=== PATIENT | male | born 1980 | race Caucasian/White ===

== ENCOUNTER 2020-05-01 23:01 | Inpatient (IN) | payer OTHER ==
[2020-05-01] MEDS ORDERED: Electrolyte Replacement Protocol 1 EACH FS PRN (23:03)
[2020-05-01] MEDS ORDERED: Vecuronium 10 MG VIAL IVP PRN (23:03)
[2020-05-01] MEDS ORDERED: Acetaminophen 500 MG TAB PO PRN (23:06)
[2020-05-01] MEDS ORDERED: niCARdipine 40MG In NaCl 40 MG/200 ML BAG IVPB SCH (23:15)
[2020-05-01] MEDS ORDERED: Ventilator Sedation Protocol 1 EACH FS SCH (23:15)
[2020-05-02] MEDS ORDERED: Sodium Chloride 0.9% 1,000 ML IV SCH (02:00)
[2020-05-02] MEDS ORDERED: Fentanyl CADD 100 ML IV SCH (02:00)
[2020-05-02] MEDS ORDERED: Fentanyl BOLUS 250 ML IVPB PRN (02:00)
[2020-05-02] MEDS ORDERED: Morphine 2 MG/ML VIAL SLOW IVP PRN (02:00)
[2020-05-02] MEDS ORDERED: DISCONTINUE PREVIOUS NARCOTIC PAIN MEDICATIONS AND BENZODIAZEPINES FS SCH (02:00)
[2020-05-02] MEDS ORDERED: Propofol BOLUS 1,000 MG/100 ML VIAL IV PRN (02:00)
[2020-05-02] MEDS ORDERED: Sterile Water 10 ML VIAL FS PRN (02:02)
[2020-05-02 02:19] LABS: Actual Bicarbonate (HCO3a) 14.4 mEq/L (22-28); Base Excess (BEa) -9.6 mEq/L (-2.0 to +3.0); CO2 Tension 28.7 mmHg (35.0-45.0); Calcium, Ionized (arterial) 1.05 mmol/L (1.12-1.30); Carboxyhemoglobin (COHb) 0.3 gm% (0.0-3.0); O2 Tension (PaO2), arterial 168.5 mmHg (80.0-100.0); Potassium - ABG Lab 3.69 mmol/L (3.70-5.30); pH, Arterial 7.32 (7.35-7.45)
[2020-05-02 02:21] LABS: Puncture Site RRA
[2020-05-02 02:22] LABS: ALV-art Gradient 80.825 mmHg (0-20)
--- NOTE | 2020-05-02 02:47 | HP ---
REASON FOR ADMISSION: Anoxic brain injury status post hanging. HISTORY OF THE PRESENT ILLNESS: Mr. Matute is a 39-year-old male who was found down at home by his sister and father. He had tied a belt around his neck and hung himself from a door knob. Apparently, he had been inebriated. The patient subsequently underwent bystander CPR. He was down at least 15 minutes before paramedics arrived. I am told paramedics got a pulse back, but it was lost in the ambulance and CPR was resumed. I believe he also had one more arrest while in the ER. When I saw him in the emergency room at the [facility], the patient was on mechanical ventilation. He was having some spontaneous respirations and some myoclonic jerking activity, but otherwise had a flat neurologic exam. PAST MEDICAL HISTORY: Remarkable for alcoholism. PAST SURGICAL HISTORY: None. ALLERGIES: NONE. SOCIAL HISTORY: Works for [employer]. He had been attending [employer]. He lives at home with his parents. He has a history of heavy alcohol abuse and had been abstaining for the last several months, but resumed drinking today. REVIEW OF SYSTEMS: Unobtainable. MEDICATIONS: Prior to admission, none. PHYSICAL EXAMINATION: VITAL SIGNS: Heart rate 123, blood pressure 147/109, O2 saturation 97%, respiratory rate 25. GENERAL: The patient is a heavy-set male who is intubated and on mechanical ventilation. HEENT: Right pupil is 5 mm, left pupil 4 mm, nonreactive to light. Sclerae anicteric. Oropharynx is intubated. NECK: C-collar in place. LUNGS: Clear to auscultation bilaterally. CARDIOVASCULAR: S1, S2. Slightly tachycardic. ABDOMEN: Soft and nontender to palpation. EXTREMITIES: No clubbing, cyanosis or edema. NEUROLOGIC: I cannot get him to withdraw with his feet. There may have been minimal withdrawal with his right arm. Left arm was areflexic. He had no gag. He did have some myoclonic type thrusting movements of his chest. LABORATORY DATA: White count 7.4, hematocrit 49.6, and platelet count 210. Initial ABG prior to intubation, pH 7.05, pCO2 of 65, pO2 of 582. Sodium 144, potassium 3.6, chloride 100, CO2 of 19, BUN 13, creatinine 1.9, glucose 211, lactate 8.2, AST 118, ALT 72, albumin 3.9. Urinalysis showed some proteinuria. His COVID serology from 05/01 was negative. Influenza screen was also negative. IMAGING: Chest x-ray showed clear lung mccartney. Good ET tube position. No effusion. No infiltrate. Brain CT shows loss of prince-white matter differentiation, cerebral edema. ASSESSMENT: 1. Severe anoxic brain injury status post hanging. 2. Acute respiratory failure requiring mechanical ventilation. 3. Alcoholism. PLAN: I doubt this situation is reversible from brain injury standpoint. The initial CT looks very bad. We are not completely sure how long he was down before he was discovered, but it was at least 15 minutes. My initial plan was to do hypothermia, if it can be tolerated. In 24 hours, we will reassess his brain function. If his neurologic exam was flat at that point, then proceed with cerebral brain flow imaging. In the meantime, supportive care. He will be given IV fluids, thiamine. DVT prophylaxis with enoxaparin and GI prophylaxis with Pepcid. Job ID: [id number]
[2020-05-02] MEDS ORDERED: Fentanyl CADD 100 ML ONE (03:49)
[2020-05-02] MEDS: niCARdipine 50 MG in Sodium Chloride 0.9% 250 ML 230 ML IV SCH (04:05)
[2020-05-02 04:11] LABS: Lactic Acid 9.9 mmol/L (0.5-2.2)
[2020-05-02 04:14] LABS: Anion Gap 30 mmol/L (10-20); BUN (Urea Nitrogen) 22 mg/dL (8.9-20.6); Calc. Creatinine Clearance 0 mL/min (70-130); Calcium 8.5 mg/dL (7.8-10.44); Carbon Dioxide 15 mmol/L (22-29); Chloride 105 mmol/L (98-107); Glucose 126 mg/dL (70-105); Potassium 3.7 mmol/L (3.5-5.1); Sodium 146 mmol/L (136-145)
[2020-05-02 04:15] LABS: ALT (SGPT) 271 U/L (8-55); AST (SGOT) 362 U/L (5-34); Albumin 4.7 g/dL (3.5-5.0); Alkaline Phosphatase 65 U/L (40-110); Bilirubin, Direct 0.2 mg/dL (0.1-0.3); Bilirubin, Total 0.5 mg/dL (0.2-1.2); Protein, Total 7.9 g/dL (6.0-8.3)
[2020-05-02] MEDS: Lorazepam 2 MG/ML VIAL SLOW IVP PRN ×3 (04:26→19:51)
[2020-05-02] MEDS: Propofol 1,000 MG/100 ML VIAL IV PRN ×2 (04:26→19:51)
[2020-05-02 04:34] LABS: Band 13 % (5-11); Hemoglobin 19.2 g/dL (14.0-18.0); Lymphocytes 6 % (21-51); MDiff Complete? YES; Mean Corpuscular HGB CONC 35.6 g/dL (32.0-36.0); Mean Corpuscular Volume 95.5 fL (78.0-98.0); Mean Platelet Volume 7.1 fL (7.4-10.4); Monocytes 5 % (0-10); Neutrophil 75 % (42-75); Platelet Count 252 thou/uL (130-400); RBC Distribution Width 11.7 % (11.5-14.5); Reactive Lymphocytes 1 % (0-10); Red Blood Cell (RBC) Count 5.66 mill/uL (4.70-6.10); White Blood Cell (WBC) Count 22.8 thou/uL (4.8-10.8)
[2020-05-02 04:38] LABS: Amphetamine Not Detected (NotDetected); Barbiturates Screen Not Detected (NotDetected); Benzodiazepine Screen Not Detected (NotDetected); Cocaine Metabolite Screen Not Detected (NotDetected); Medtox Control Line Valid? VALID (VALID); Medtox Reader # READER 4; Methadone Not Detected (NotDetected); Methamphetamine Not Detected (NotDetected); Opiate Screen Not Detected (NotDetected); Oxycodone Screen Not Detected (NotDetected); Phencyclidine (PCP) Not Detected (NotDetected); THC/Cannabinoid Screen Not Detected (NotDetected); Tricyclic Screen Not Detected (NotDetected)
[2020-05-02 06:28] VITALS: BMI 28.0
[2020-05-02] MEDS ORDERED: FLU VACC QS2020-21(6MOS UP)/PF 60 MCG/0.5 ML SYRINGE IM ONE (07:30)
--- NOTE | 2020-05-02 08:06 | PRG ---
DATE OF SERVICE: 05/02/2020 A 35 minutes of critical care time. SUBJECTIVE: The patient is intubated on mechanical ventilation. There have been no acute changes since I last examined him. OBJECTIVE: VITAL SIGNS: His T-max was 104.9, it is currently 99.0. Pulse 126, blood pressure 101/71, and O2 saturation 100%. NEUROLOGIC: His exam is completely flat except for spontaneous respirations. He has no pupillary reflex. No oculocephalic reflex. No withdrawal to pain. No gag reflex. HEENT: Otherwise unremarkable. NECK: No JVD. LUNGS: Clear. CARDIAC: S1 and S2. Regular. ABDOMEN: Soft. EXTREMITIES: No edema. LABORATORY DATA: White blood cell count 22.8, hematocrit 54, and platelet count 252. A pH of 7.32, pCO2 of 28, and pO2 of 168 on SIMV of 14, tidal of 500, PEEP 5, pressure support 10, and FiO2 of 40%. Sodium 146, potassium 3.7, chloride 105, CO2 of 15, BUN 22, creatinine 1.8, glucose 166, AST 362, and ALT 271. Chest x-ray is clear. ASSESSMENT: 1. Status post hanging. 2. Anoxic brain injury - severe - near brain . PLAN: 1. Because of developing hypernatremia and metabolic acidosis, I will go ahead and switch him over to D5W with bicarbonate. 2. Continue supportive care with mechanical ventilation. 3. I spoke with family. Since the patient is not technically brain , cerebral perfusion blood studies not indicated at the current moment. I do expect him to progress towards herniation. Job ID: [id number]
--- NOTE | 2020-05-02 08:18 | RAD ---
XR Chest 1 View Portable History: Intubated patient Comparison: Radiograph prior day Findings: Intra-articular tube tip at the clavicular level. Enteric tube tip at the gastric body. Extensive pneumomediastinum. Impression: Extensive pneumomediastinum. Enteric tube tip gastric body and endotracheal tube tip just below the clavicular level.
[2020-05-02] MEDS: Sodium Bicarbonate 70 MEQ in Dextrose 5% in Water 1,000 ML IV SCH ×2 (09:08→16:54)
[2020-05-02] MEDS: Enoxaparin Sodium 40 MG/0.4 ML SYRINGE SC SCH (09:10)
[2020-05-02] MEDS: Famotidine/PF 20 mg/2ml Vial SLOW IVP SCH ×2 (09:10→20:15)
[2020-05-03] MEDS: Propofol 1,000 MG/100 ML VIAL IV PRN ×5 (01:04→23:30)
[2020-05-03] MEDS: Sodium Bicarbonate 70 MEQ in Dextrose 5% in Water 1,000 ML IV SCH (02:30)
[2020-05-03] MEDS: Lorazepam 2 MG/ML VIAL SLOW IVP PRN ×2 (02:30→08:04)
[2020-05-03 03:45] LABS: #Lymphocytes 0.9 thou/uL (1.20-3.40); #Neutrophils 13.4 thou/uL (1.40-6.50); %Eosinophils 0.2 % (0.0-10.0); %Lymphocytes 6.1 % (21.0-51.0); %Monocytes 6.8 % (0.0-10.0); Hemoglobin 17.9 g/dL (14.0-18.0); Mean Corpuscular Hemoglobin 32.3 pg (27.0-31.0); Mean Corpuscular Volume 94.7 fL (78.0-98.0); Mean Platelet Volume 7.3 fL (7.4-10.4); Platelet Count 169 thou/uL (130-400); RBC Distribution Width 11.7 % (11.5-14.5); Red Blood Cell (RBC) Count 5.55 mill/uL (4.70-6.10); White Blood Cell (WBC) Count 15.4 thou/uL (4.8-10.8)
[2020-05-03 04:02] LABS: Anion Gap 13 mmol/L (10-20); BUN (Urea Nitrogen) 23 mg/dL (8.9-20.6); Calc. Creatinine Clearance 103 mL/min (70-130); Calcium 8.4 mg/dL (7.8-10.44); Carbon Dioxide 30 mmol/L (22-29); Chloride 103 mmol/L (98-107); Glucose 184 mg/dL (70-105); Potassium 3.1 mmol/L (3.5-5.1); Sodium 143 mmol/L (136-145)
[2020-05-03] MEDS ORDERED: Potassium Chloride 40 MEQ in Premix Bag 1 BAG IVPB SCH (04:15)
[2020-05-03] MEDS: niCARdipine 50 MG in Sodium Chloride 0.9% 250 ML 230 ML IV SCH ×2 (04:59→10:38)
--- NOTE | 2020-05-03 05:58 | OP ---
DATE OF PROCEDURE: 05/02/2020 PROCEDURE PERFORMED: Right arterial femoral line placement. PREOPERATIVE DIAGNOSIS: Status post anoxic brain injury, pretransplant evaluation. POSTOPERATIVE DIAGNOSIS: Status post anoxic brain injury, pretransplant evaluation. ANESTHESIA: None. DESCRIPTION OF PROCEDURE: A right femoral arterial line was placed under sterile conditions in the right femoral area using modified Seldinger technique. Chlorhexidine was used as prep. The patient tolerated the procedure well. Job ID: [id number]
[2020-05-03 07:56] LABS: Actual Bicarbonate (HCO3a) 29.3 mEq/L (22-28); CO2 Tension 41.9 mmHg (35.0-45.0); Calcium, Ionized (arterial) 1.08 mmol/L (1.12-1.30); Carboxyhemoglobin (COHb) 0.3 gm% (0.0-3.0); Hemoglobin (Hb) 18.3 g/dL (14.0-18.0); O2 Tension (PaO2), arterial 157.6 mmHg (80.0-100.0); Potassium - ABG Lab 3.68 mmol/L (3.70-5.30); pH, Arterial 7.46 (7.35-7.45)
[2020-05-03] MEDS: Enoxaparin Sodium 40 MG/0.4 ML SYRINGE SC SCH (08:04)
[2020-05-03] MEDS: Famotidine/PF 20 mg/2ml Vial SLOW IVP SCH ×2 (08:04→20:38)
--- NOTE | 2020-05-03 09:12 | RAD ---
CHEST 1 VIEW: Date: 05/03/2020 HISTORY: Pneumonia. COMPARISON: Radiograph prior day. FINDINGS: Pneumomediastinum is partially resolving. External artifact projects to the left hemithorax. Endotracheal tube tip at the clavicular level. Enteric tube tip at gastric body. No significant pneumothorax is appreciated. IMPRESSION: Partially resolving pneumomediastinum. POS: [facility]
--- NOTE | 2020-05-03 09:16 | PRG ---
DATE OF SERVICE: 05/03/2020 35 minutes of critical care time. SUBJECTIVE: The patient is doing poorly. He has had increased urine output. His only preserved reflex is spontaneous respirations and even that has slowed down. OBJECTIVE: VITAL SIGNS: His temperature is 100.5, pulse 81, blood pressure 124/78. 24-hour intake 1693, output 1990 over the last hour, though he has had about 300 mL of urine output and his urine has become very clear. HEENT: Otherwise unremarkable. NECK: No JVD. LUNGS: Clear. CARDIAC: S1, S2. Regular. ABDOMEN: Soft. EXTREMITIES: No edema. LABORATORY DATA: Sodium 143, potassium 3.1, chloride 103, CO2 of 30, BUN 23, creatinine 1.1, glucose 184. AST 362, ALT 271. White blood cell count 15.4, hematocrit 52.6, and platelet count 169. X-ray shows no significant change. ASSESSMENT: 1. Severe anoxic brain injury. 2. Acute respiratory failure, requiring mechanical ventilation. 3. Near brain . PLAN: 1. Change to normal saline. Try to match urine output. 2. We would anticipate herniation and brain coming soon. 3. [place] T4 protocol. 4. May need to have DDAVP. 5. Cerebral brain flow study at some point after neurologic reflexes are absent. Job ID: [id number]
[2020-05-03] MEDS ORDERED: Dextrose 50% Abboject 50 ML SYRINGE SLOW IVP SCH (09:45)
[2020-05-03] MEDS ORDERED: Levothyroxine 100 MCG SDV SLOW IVP SCH (09:45)
[2020-05-03] MEDS ORDERED: Insulin Regular 300 UNITS/3 ML VIAL IVP SCH (09:45)
[2020-05-03] MEDS ORDERED: methylPREDNISolone Sod Succ 2 gm/30 ml Vial IVP SCH (09:45)
[2020-05-03] MEDS ORDERED: Levothyroxine Sodium 400 MCG in Sodium Chloride 0.9% 100 ML IVPB SCH (09:45)
[2020-05-03] MEDS ORDERED: methylPREDNISolone Sod Succ 1,000 MG in Sodium Chloride 0.9% 100 ML IVPB SCH ×2 (10:00→10:30)
[2020-05-03] MEDS: Sodium Chloride 0.9% 1,000 ML IV SCH ×3 (10:00→19:44)
[2020-05-03 13:05] LABS: ALV-art Gradient 75.225 mmHg (0-20); Puncture Site Arterial Line
[2020-05-03] MEDS ORDERED: Scopolamine 1.5 mg/72 hour Patch TD SCH (13:45)
[2020-05-04] MEDS: Sodium Chloride 0.9% 1,000 ML IV SCH ×2 (03:48→11:08)
[2020-05-04 05:22] LABS: Anion Gap 14 mmol/L (10-20); BUN (Urea Nitrogen) 11 mg/dL (8.9-20.6); Calc. Creatinine Clearance 120 mL/min (70-130); Calcium 9.2 mg/dL (7.8-10.44); Carbon Dioxide 30 mmol/L (22-29); Chloride 115 mmol/L (98-107); Glucose 134 mg/dL (70-105); Sodium 155 mmol/L (136-145)
[2020-05-04 05:52] LABS: Band 36 % (5-11); Lymphocytes 6 % (21-51); MDiff Complete? YES; Mean Corpuscular HGB CONC 33.2 g/dL (32.0-36.0); Mean Corpuscular Hemoglobin 32.5 pg (27.0-31.0); Mean Corpuscular Volume 97.9 fL (78.0-98.0); Mean Platelet Volume 7.5 fL (7.4-10.4); Monocytes 4 % (0-10); Neutrophil 54 % (42-75); Platelet Count 149 thou/uL (130-400); RBC Distribution Width 11.8 % (11.5-14.5); Red Blood Cell (RBC) Count 5.22 mill/uL (4.70-6.10); White Blood Cell (WBC) Count 11.2 thou/uL (4.8-10.8)
[2020-05-04] MEDS: niCARdipine 50 MG in Sodium Chloride 0.9% 250 ML 230 ML IV SCH (06:12)
[2020-05-04 07:04] LABS: Actual Bicarbonate (HCO3a) 26.6 mEq/L (22-28); Base Excess (BEa) 1.5 mEq/L (-2.0 to +3.0); CO2 Tension 43.3 mmHg (35.0-45.0); Calcium, Ionized (arterial) 1.24 mmol/L (1.12-1.30); Carboxyhemoglobin (COHb) 0.2 gm% (0.0-3.0); Hemoglobin (Hb) 18.4 g/dL (14.0-18.0); O2 Tension (PaO2), arterial 73.3 mmHg (80.0-100.0); Potassium - ABG Lab 4.14 mmol/L (3.70-5.30); pH, Arterial 7.41 (7.35-7.45)
[2020-05-04 07:05] LABS: ALV-art Gradient 157.775 mmHg (0-20); Puncture Site Arterial Line
--- NOTE | 2020-05-04 07:59 | RAD ---
XR Chest 1 View Portable History: Pneumonia Comparison: Radiograph prior day Findings: Degenerative tip at the clavicular level. No pneumothorax. No confluent airspace consolidat ion. Scattered atelectatic changes. Enteric tube tip below diaphragm although out of field of view. No acute osseous abnormality. Impression: No acute intrathoracic abnormality. Pneumomediastinum continues to resolve.
[2020-05-04] MEDS: Sodium Chloride 0.45% 1,000 ML IV SCH ×4 (08:30→23:05)
--- NOTE | 2020-05-04 08:57 | PRG ---
DATE OF SERVICE: 05/04/2020 This is a 30 minutes critical care time. SUBJECTIVE: The patient remains on mechanical ventilation. He has a few spontaneous respirations. Otherwise, his neurologic exam is flat. OBJECTIVE: VITAL SIGNS: His temperature is 100.8, pulse 86, blood pressure 125/69. He is currently on propofol. Nicardipine has been turned off. 24-hour intake 5367, output 7215. HEENT: Unchanged. NECK: No JVD. LUNGS: Clear. CARDIAC: S1 and S2. Regular. ABDOMEN: Soft. EXTREMITIES: No edema. LABORATORY DATA: Sodium is up to 155, potassium 4, chloride 115, CO2 of 30, BUN 11, creatinine 0.9, glucose 134. White blood cell count 11.2, hematocrit 51.1, and platelet count 149. IMAGING DATA: Chest x-ray shows no change. ASSESSMENT: 1. Anoxic brain injury after hanging with loss of prince white matter differentiation. 2. 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 PLAN: At some point, he will probably herniate. I wanted double his DDAVP dose. I have changed his IV fluids to half-normal saline, still require copious volume to replace what he has lost. We will monitor his sodium level closely. Job ID: [id number]
[2020-05-04] MEDS: Enoxaparin Sodium 40 MG/0.4 ML SYRINGE SC SCH (09:23)
[2020-05-04] MEDS: Famotidine/PF 20 mg/2ml Vial SLOW IVP SCH ×2 (09:24→20:22)
[2020-05-04] MEDS: Propofol 1,000 MG/100 ML VIAL IV PRN ×2 (10:18→16:45)
[2020-05-04] MEDS: Vasopressin 20 UNIT, Admixture Fee 1 EACH in Sodium Chloride 0.9% 50 ML IV SCH ×2 (10:48→17:12)
[2020-05-04 15:19] LABS: Sodium 153 mmol/L (136-145)
[2020-05-04] MEDS: Norepinephrine 8 MG/0.9% NS 250 ML IVPB SCH (23:05)
[2020-05-05 00:42] LABS: Anion Gap 16 mmol/L (10-20); BUN (Urea Nitrogen) 20 mg/dL (8.9-20.6); Calc. Creatinine Clearance 113 mL/min (70-130); Calcium 8.5 mg/dL (7.8-10.44); Carbon Dioxide 24 mmol/L (22-29); Chloride 116 mmol/L (98-107); Glucose 110 mg/dL (70-105); Potassium 3.6 mmol/L (3.5-5.1); Sodium 152 mmol/L (136-145)
[2020-05-05 01:37] VITALS: TEMP 98.8
[2020-05-05] MEDS: Sodium Chloride 0.45% 1,000 ML IV SCH ×3 (04:42→15:00)
[2020-05-05 05:42] LABS: Anion Gap 11 mmol/L (10-20); BUN (Urea Nitrogen) 22 mg/dL (8.9-20.6); Calc. Creatinine Clearance 122 mL/min (70-130); Calcium 8.3 mg/dL (7.8-10.44); Carbon Dioxide 28 mmol/L (22-29); Chloride 115 mmol/L (98-107); Glucose 122 mg/dL (70-105); Potassium 3.8 mmol/L (3.5-5.1); Sodium 150 mmol/L (136-145)
[2020-05-05 06:36] LABS: Band 52 % (5-11); Eosinophils 1 % (0-10); Hemoglobin 13.7 g/dL (14.0-18.0); Lymphocytes 21 % (21-51); MDiff Complete? YES; Mean Corpuscular HGB CONC 31.8 g/dL (32.0-36.0); Mean Corpuscular Hemoglobin 31.9 pg (27.0-31.0); Mean Platelet Volume 7.7 fL (7.4-10.4); Metamyelocyte 9 % (0-0); Monocytes 5 % (0-10); Myelocyte 3 % (0-0); Neutrophil 9 % (42-75); Platelet Count 140 thou/uL (130-400); RBC Distribution Width 11.8 % (11.5-14.5); Toxic Granulation SLIGHT; White Blood Cell (WBC) Count 4.2 thou/uL (4.8-10.8)
[2020-05-05 06:50] LABS: Actual Bicarbonate (HCO3a) 29.4 mEq/L (22-28); Base Excess (BEa) 1.2 mEq/L (-2.0 to +3.0); CO2 Tension 62.5 mmHg (35.0-45.0); Calcium, Ionized (arterial) 1.18 mmol/L (1.12-1.30); Carboxyhemoglobin (COHb) 0.8 gm% (0.0-3.0); Hemoglobin (Hb) 14.4 g/dL (14.0-18.0); O2 Tension (PaO2), arterial 54.2 mmHg (80.0-100.0); Potassium - ABG Lab 3.88 mmol/L (3.70-5.30); pH, Arterial 7.29 (7.35-7.45)
[2020-05-05 06:51] LABS: ALV-art Gradient 295.475 mmHg (0-20); Puncture Site Arterial Line
[2020-05-05] MEDS: Norepinephrine 8 MG/0.9% NS 250 ML IVPB SCH (06:56)
--- NOTE | 2020-05-05 07:30 | RAD ---
PORTABLE CHEST: Date; 05/04/2020 HISTORY: Difficulty ventilated, pneumonia. COMPARISON: Earlier exam done today. FINDINGS: The endotracheal and NG tubes appear to be in satisfactory position. There has been development of fa irly dense interstitial alveolar lung changes, more parahilar and lower lobe in distribution. The rap idity of the development would suggest pulmonary edema. The pneumomediastinum seen on the previous ex am is difficult to appreciate. No pneumothorax. IMPRESSION: Fairly dense interstitial alveolar lung changes, which are more parahilar in lower lobe and more righ t-sided. The rapidity of these changes would suggest pulmonary edema. POS: [facility]
--- NOTE | 2020-05-05 08:01 | RAD ---
Exam: Chest one view HISTORY:Ventilated patient. Difficulty breathing. Ammonia Comparison: 05/04/2020 FINDINGS: Lines and tubes: Redemonstration of endotracheal and nasogastric tube. Cardiac silhouette: Normal Aorta: Unremarkable Pulmonary vessels: Normal Costophrenic angles: Clear LUNGS: Redemonstration of right lower lobe consolidation. Pneumothorax: None Osseous abnormalities: None IMPRESSION: Persistent consolidation of the right lower lobe. Findings may be due to edema or possibl y pneumonia.
[2020-05-05] MEDS: Enoxaparin Sodium 40 MG/0.4 ML SYRINGE SC SCH (08:34)
[2020-05-05] MEDS: Famotidine/PF 20 mg/2ml Vial SLOW IVP SCH (08:34)
--- NOTE | 2020-05-05 08:51 | PRG ---
DATE OF SERVICE: 05/05/2020 35 minutes critical time. SUBJECTIVE: Jos stopped having spontaneous respirations last night. Neurologically, I do not detect any activity and he had no respirations when given the 60-minute apnea spell. OBJECTIVE: VITAL SIGNS: Temperature 98.3, pulse 93, blood pressure 109/65, O2 saturation 96%. 24-hour intake 2805, output 1341. HEENT: Pupils unreactive. No gag. LUNGS: Clear. CARDIAC: S1, S2. Regular. ABDOMEN: Soft. EXTREMITIES: No edema. He is currently on norepinephrine drip at 10 mcg/minute, vasopressin 0.008 units/minute. LABS: Sodium 150, potassium 3.8, chloride 115, CO2 of 28, BUN 22, creatinine 0.9, glucose 122. White blood cell count 4.2, hematocrit 43, and platelet count 140. ASSESSMENT: 1. Status post hanging. 2. Anoxic brain injury. 3. Probable brain . 4. Respiratory failure requiring mechanical ventilation. PLAN: 1. Observe blood flow study today and probably pronouncement afterward if he is found to have absence of blood flow in scan. 2. Continue vasopressor support. 3. Start T4 protocol. Job ID: [id number]
[2020-05-05] MEDS ORDERED: Phenylephrine 40 MG/NS 250 ML 10 MG in Premix Bag 1 BAG IVPB SCH (10:30)
[2020-05-05] MEDS ORDERED: Levothyroxine Sodium 400 MCG in Sodium Chloride 0.9% 100 ML IVPB SCH (11:00)
[2020-05-05] MEDS ORDERED: Phenylephrine 40 MG in Sodium Chloride 0.9% 250 ML 250 ML IVPB SCH (11:30)
--- NOTE | 2020-05-05 11:30 | NM ---
NUCLEAR MEDICINE BRAIN CEREBRAL FLOW STUDY: HISTORY: Evaluate for brain . COMPARISON: CT brain 05/01/2020. FINDINGS: Imaging of the brain was performed after the intravenous administration of 209.6 mCi Technetium 99m C eretec. There is no intracranial blood flow. There is diversion of blood flow to the face. IMPRESSION: No intracerebral blood flow, indicative of absent cerebral perfusion and brain . POS: [facility]
[2020-05-05 15:13] VITALS: BP 98/52
--- NOTE | 2020-05-06 07:17 | DIS ---
DATE OF ADMISSION: 05/02/2020 DATE OF DISCHARGE: 05/05/2020 DATE AND TIME OF : 05/05/2020 at 1600 hours. DIAGNOSES: 1. 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 2. Clinical brain determined at 1600 hours on 05/05/2020. 3. Acute hypoxic respiratory failure secondary to asphyxiation. SUMMARY OF HOSPITALIZATION: The patient initially presented to the [facility] via EMS after being found down at home, hung from his neck by a belt attached to a doorknob. The patient's family had performed bystander CPR prior to presentation, but it was not quite clear how long he had been down, but it was suspected less than 15 minutes. They were able to obtain a pulse in the field, but I believe he arrested once in the ambulance and also again in the Emergency Room. There, he was hemodynamically stabilized with IV fluids and endotracheally intubated. His initial exam showed some posturing reflexes and spontaneous respirations, otherwise his neurologic exam was flat. His initial CT of the head showed loss of prince-white matter differentiation. He was brought to [facility] and kept on mechanical ventilation. He was given IV fluids, vasopressors, etc. On 05/04/2020, he developed profound urine output consistent with central diabetes insipidus. He was given DDAVP, vasopressin, and IV fluid replacement for that. On his initial exam on 05/05/2020, he was noted to have absence of all reflexes including no spontaneous respirations. He subsequently underwent a cerebral blood flow study, which showed no cerebral blood flow consistent with clinical brain . The patient was pronounced at 1600 hours on 05/05/2020. The family was at bedside. The cause of was asphyxiation secondary to hanging. forms examiner had been contacted. Job ID: [id number]
== END 2020-05-05 16:00 | disposition expired | DRG 922 ==
LOC: IMCU/EMU 05-02 01:46
PROVIDERS: ADMIT Internal Medicine Critical Care Medicine; ATTEND Internal Medicine Critical Care Medicine
PROC: 04HY32Z Insertion of Monitoring Device into Lower Artery, Percutaneous Approach (ICD-10-PCS; principal; 2020-05-02)
PROC: 5A1945Z Respiratory Ventilation, 24-96 Consecutive Hours (ICD-10-PCS; 2020-05-02)
PROC: 3E033XZ Introduction of Vasopressor into Peripheral Vein, Percutaneous Approach (ICD-10-PCS; 2020-05-03)
DX: T71.162A Asphyxiation due to hanging, intentional self-harm, initial encounter (principal); J96.01 Acute respiratory failure with hypoxia; G93.1 Anoxic brain damage, not elsewhere classified; E87.0 Hyperosmolality and hypernatremia; E87.2 Acidosis; E23.2 Diabetes insipidus; F10.20 Alcohol dependence, uncomplicated; Y92.009 Unspecified place in unspecified non-institutional (private) residence as the place of occurrence of the external cause
CPT/HCPCS: 36600; 71045; 78610; 80048; 80076; 80306; 82805; 83605; 85025; 93306; 94002; 94003; A9521; J1650; J1815; J2060; J2370; J2597; J2704; J3010; J3411; J3480; J3490; J7050; J7070; S0028

== ENCOUNTER → 2020-05-05 | Day surgery (SDC) | payer OTHER ==
[~2020-05-05] MED LIST: Albumin 25% 100 ML ONE; Albumin 5% 500 ML ONE; DEXTROSE 5% IV SCH; Dextrose 5% in Water 500 ML IV SCH; Furosemide 20 MG/2 ML VIAL ONE; HUMULIN R 100 UNITS in Sodium Chloride 0.9% 100 ML IVPB SCH; Heparin 10,000 UNITS/ 10 ML VIAL ONE; Hydrocortisone Sod Succ/PF 500 mg/4 ml Vial SLOW IVP SCH; Iopamidol 370 76% 100 ML VIAL ONE; Labetalol HCl 100 MG/20 ML VIAL SLOW IVP SCH; Magnesium Sulfate 4 GM in Sodium Chloride 0.9% 250 ML 250 ML IVPB SCH; Mannitol 12.5 GM/50 ML ONE; Micafungin 100 MG in Sodium Chloride 0.9% 100 ML IVPB SCH; Norepinephrine 8 MG/0.9% NS 250 ML IVPB SCH; POTASSIUM ACETATE IV SCH; Phenylephrine 10 MG/NS 250 ML 250 ML IVPB SCH; Potassium Chloride 40 MEQ in Premix Bag 1 BAG IVPB SCH; Potassium Chloride 60 MEQ in Sodium Chloride 0.9% 250 ML 250 ML IVPB SCH; Potassium Phosphate 30 MMOL in Sodium Chloride 0.9% 250 ML 250 ML IVPB SCH; Potassium Phosphate 40 MMOL in Sodium Chloride 0.9% 500 ML IVPB SCH; VANCOMYCIN 1.25 GM/250 ML BAG 1.25 GM in Premix Bag 1 BAG IVPB SCH; Vasopressin 20 UNIT in Sodium Chloride 0.9% 250 ML 250 ML IV SCH; WATER IV SCH; niCARdipine 25 MG in Sodium Chloride 0.9% 250 ML 240 ML IVPB SCH
[2020-05-05 17:10] LABS: Actual Bicarbonate (HCO3a) 26.7 mEq/L (22-28); Base Excess (BEa) 2.5 mEq/L (-2.0 to +3.0); CO2 Tension 39.9 mmHg (35.0-45.0); Calcium, Ionized (arterial) 1.19 mmol/L (1.12-1.30); Carboxyhemoglobin (COHb) 0.5 gm% (0.0-3.0); Hemoglobin (Hb) 13.2 g/dL (14.0-18.0); O2 Tension (PaO2), arterial 121.3 mmHg (80.0-100.0); Potassium - ABG Lab 3.43 mmol/L (3.70-5.30); pH, Arterial 7.44 (7.35-7.45)
[2020-05-05 17:14] LABS: ALV-art Gradient 541.825 mmHg (0-20); Puncture Site Arterial Line
[2020-05-05] MEDS: Piperacillin/Tazobactam 3.375 GM in Sodium Chloride 0.9% 100 ML IVPB SCH (17:57)
[2020-05-05] MEDS: Albumin 25% 25 GM/100 ML BOT IVPB SCH ×2 (18:06→21:13)
[2020-05-05] MEDS: Phytonadione 10 MG/ML AMP SLOW IVP SCH ×2 (18:15→22:25)
[2020-05-05 18:39] LABS: Hemoglobin 12.1 g/dL (14.0-18.0)
[2020-05-05] MEDS: Levothyroxine Sodium 400 MCG in Sodium Chloride 0.9% 100 ML IVPB SCH (19:40)
[2020-05-05 19:51] LABS: INR-International Normal Ratio 1.2; PTT 36.8 sec (22.9-36.1); Prothrombin Time 15.7 sec (12.0-14.7)
[2020-05-05 20:04] LABS: ALT (SGPT) 36 U/L (8-55); AST (SGOT) 22 U/L (5-34); Albumin 2.9 g/dL (3.5-5.0); Alkaline Phosphatase 36 U/L (40-110); Anion Gap 12 mmol/L (10-20); BUN (Urea Nitrogen) 23 mg/dL (8.9-20.6); Calc. Creatinine Clearance 0 mL/min (70-130); Carbon Dioxide 25 mmol/L (22-29); Chloride 116 mmol/L (98-107); Globulin 1.8 g/dL (2.4-3.5); Glucose 99 mg/dL (70-105); Magnesium 1.8 mg/dL (1.6-2.6); Potassium 3.2 mmol/L (3.5-5.1); Protein, Total 4.7 g/dL (6.0-8.3); Sodium 150 mmol/L (136-145)
[2020-05-05 20:15] LABS: Band 45 % (5-11); Eosinophils 10 % (0-10); Hemoglobin 12.6 g/dL (14.0-18.0); Hypochromia SLIGHT = 6-15 cells (100X) (0-5/hpf); Lymphocytes 19 % (21-51); MDiff Complete? YES; Macrocytosis SLIGHT = 6-15 cells (100X) (0-5/hpf); Mean Corpuscular HGB CONC 33.1 g/dL (32.0-36.0); Mean Corpuscular Hemoglobin 33.5 pg (27.0-31.0); Mean Platelet Volume 7.5 fL (7.4-10.4); Metamyelocyte 10 % (0-0); Monocytes 6 % (0-10); Myelocyte 8 % (0-0); Nucleated RBC 1 % (0); Platelet Count 112 thou/uL (130-400); Platelet Morphology Comment Appears Decreased; Polychromasia SLIGHT = 2-3 cells (100X) (0-2/hpf); RBC Distribution Width 11.8 % (11.5-14.5); Reactive Lymphocytes 2 % (0-10); Red Blood Cell (RBC) Count 3.78 mill/uL (4.70-6.10); White Blood Cell (WBC) Count 3.5 thou/uL (4.8-10.8)
[2020-05-05] MEDS: Albuterol Sulfate 2.5 mg/3 ml Neb NEB SCH ×2 (20:29→23:17)
[2020-05-05 21:01] LABS: Hemoglobin A1c 5.1 % (4.0-6.0)
[2020-05-05 21:03] LABS: Bacteria/HPF None Seen HPF (None Seen); Bilirubin Negative (Negative); Blood, Urine 3+ (Negative); Clarity Clear (Clear); Glucose, Urine (Dipstick) Normal (Negative); Ketone, Urine 20 mg/dL (Negative); Leukocyte Negative Leu/uL (Negative); Nitrite Negative (Negative); Protein, Urine (Dipstick) 50 mg/dL (Neg-Trace); Specific Gravity, Urine 1.017 (1.002-1.036); Squamous Epithelial 0-3 HPF (0-3); Urobilinogen Normal mg/dL (Less than 2)
[2020-05-05 21:04] LABS: Sperm/HPF Rare HPF (None Seen)
[2020-05-05] MEDS: Sodium Chloride 0.45% 1,000 ML IV SCH (21:13)
[2020-05-05 23:34] LABS: Actual Bicarbonate (HCO3a) 22.7 mEq/L (22-28); Base Excess (BEa) -1.1 mEq/L (-2.0 to +3.0); CO2 Tension 35.2 mmHg (35.0-45.0); Calcium, Ionized (arterial) 1.17 mmol/L (1.12-1.30); Carboxyhemoglobin (COHb) 0.4 gm% (0.0-3.0); O2 Tension (PaO2), arterial 403.4 mmHg (80.0-100.0); Potassium - ABG Lab 3.92 mmol/L (3.70-5.30); pH, Arterial 7.43 (7.35-7.45)
[2020-05-05 23:37] LABS: Puncture Site Arterial Line
[2020-05-06 00:05] LABS: INR-International Normal Ratio 1.2; Prothrombin Time 15.3 sec (12.0-14.7)
[2020-05-06 00:10] LABS: Lactic Acid 1.6 mmol/L (0.5-2.2)
[2020-05-06] MEDS: Levothyroxine Sodium 400 MCG in Sodium Chloride 0.9% 100 ML IVPB SCH (00:14)
[2020-05-06] MEDS: Piperacillin/Tazobactam 3.375 GM in Sodium Chloride 0.9% 100 ML IVPB SCH ×5 (00:15→23:17)
[2020-05-06 00:19] LABS: ALT (SGPT) 33 U/L (8-55); AST (SGOT) 23 U/L (5-34); Albumin 3.2 g/dL (3.5-5.0); Alkaline Phosphatase 34 U/L (40-110); Anion Gap 15 mmol/L (10-20); BUN (Urea Nitrogen) 20 mg/dL (8.9-20.6); Bilirubin, Direct 0.5 mg/dL (0.1-0.3); Bilirubin, Total 0.9 mg/dL (0.2-1.2); CK (CPK) 411 U/L (30-200); CKMB 0.9 ng/mL (0-6.6); Calc. Creatinine Clearance 0 mL/min (70-130); Calcium 8.7 mg/dL (7.8-10.44); Carbon Dioxide 22 mmol/L (22-29); Chloride 117 mmol/L (98-107); Globulin 2.7 g/dL (2.4-3.5); Glucose 124 mg/dL (70-105); Lipase 6 U/L (8-78); Magnesium 2.9 mg/dL (1.6-2.6); Phosphorus 4.5 mg/dL (2.3-4.7); Potassium 3.8 mmol/L (3.5-5.1); Protein, Total 5.9 g/dL (6.0-8.3); Sodium 150 mmol/L (136-145); Troponin I 0.019 ng/mL (< 0.028)
[2020-05-06 00:43] LABS: Band 38 % (5-11); Eosinophils 2 % (0-10); Hemoglobin 12.4 g/dL (14.0-18.0); Lymphocytes 20 % (21-51); MDiff Complete? YES; Mean Corpuscular HGB CONC 33.1 g/dL (32.0-36.0); Mean Corpuscular Volume 99.7 fL (78.0-98.0); Mean Platelet Volume 7.1 fL (7.4-10.4); Metamyelocyte 6 % (0-0); Monocytes 4 % (0-10); Myelocyte 4 % (0-0); Neutrophil 26 % (42-75); Platelet Count 112 thou/uL (130-400); Platelet Morphology Comment Appears Decreased; RBC Distribution Width 11.8 % (11.5-14.5); Red Blood Cell (RBC) Count 3.77 mill/uL (4.70-6.10); White Blood Cell (WBC) Count 3.6 thou/uL (4.8-10.8)
[2020-05-06] MEDS: Hydrocortisone Sod Succ/PF 100 mg/2 ml Vial IVP SCH ×3 (02:07→18:03)
[2020-05-06] MEDS: Albuterol Sulfate 2.5 mg/3 ml Neb NEB SCH ×6 (02:55→23:14)
[2020-05-06 05:51] LABS: Actual Bicarbonate (HCO3a) 25.3 mEq/L (22-28); Base Excess (BEa) 1.9 mEq/L (-2.0 to +3.0); CO2 Tension 35.5 mmHg (35.0-45.0); Calcium, Ionized (arterial) 1.16 mmol/L (1.12-1.30); Carboxyhemoglobin (COHb) 0.2 gm% (0.0-3.0); Hemoglobin (Hb) 12.5 g/dL (14.0-18.0); Potassium - ABG Lab 3.68 mmol/L (3.70-5.30); pH, Arterial 7.47 (7.35-7.45)
[2020-05-06 05:52] LABS: ALV-art Gradient 248.625 mmHg (0-20); Puncture Site Arterial Line
[2020-05-06 06:26] LABS: INR-International Normal Ratio 1.1; Prothrombin Time 14.7 sec (12.0-14.7)
[2020-05-06 06:27] LABS: PTT 33.7 sec (22.9-36.1)
[2020-05-06 06:30] LABS: ALT (SGPT) 30 U/L (8-55); AST (SGOT) 23 U/L (5-34); Alkaline Phosphatase 38 U/L (40-110); Anion Gap 13 mmol/L (10-20); BUN (Urea Nitrogen) 19 mg/dL (8.9-20.6); Bilirubin, Direct 0.4 mg/dL (0.1-0.3); Bilirubin, Total 0.7 mg/dL (0.2-1.2); CK (CPK) 471 U/L (30-200); Calc. Creatinine Clearance 0 mL/min (70-130); Calcium 8.7 mg/dL (7.8-10.44); Carbon Dioxide 24 mmol/L (22-29); Chloride 117 mmol/L (98-107); Globulin 2.8 g/dL (2.4-3.5); Glucose 145 mg/dL (70-105); Lipase 5 U/L (8-78); Magnesium 2.5 mg/dL (1.6-2.6); Phosphorus 3.6 mg/dL (2.3-4.7); Potassium 3.7 mmol/L (3.5-5.1); Protein, Total 5.8 g/dL (6.0-8.3); Sodium 150 mmol/L (136-145)
[2020-05-06 06:34] LABS: CKMB 0.8 ng/mL (0-6.6); Troponin I 0.017 ng/mL (< 0.028)
[2020-05-06 06:36] LABS: Lactic Acid 1.4 mmol/L (0.5-2.2)
[2020-05-06 06:37] LABS: Hemoglobin 11.8 g/dL (14.0-18.0); Mean Corpuscular HGB CONC 32.5 g/dL (32.0-36.0); Mean Corpuscular Hemoglobin 32.2 pg (27.0-31.0); Mean Platelet Volume 7.6 fL (7.4-10.4); Platelet Count 125 thou/uL (130-400); RBC Distribution Width 11.8 % (11.5-14.5); Red Blood Cell (RBC) Count 3.66 mill/uL (4.70-6.10)
--- NOTE | 2020-05-06 08:17 | RAD ---
AP CHEST: HISTORY: Organ donor. COMPARISON: 05/05/2020. FINDINGS: ET tube and NG tube are in place. Right lung is well aerated and appears clear today. There is patchy infiltrate and/or atelectasis th roughout the left lung slightly more prominent in the left lung base. Heart and mediastinum unremark able. IMPRESSION: Evidence of left lung infiltrate and/or atelectasis. POS: [facility]
--- NOTE | 2020-05-06 08:44 | RAD ---
PORTABLE SUPINE CHEST: Date: 05/06/2020 HISTORY: Organ donor. Comparison made to film on 05/06/2020 at 0013 hours. FINDINGS/IMPRESSION: ET tube and NG tube unchanged. Lungs are well aerated. There is infiltrate and/or atelectasis in the medial right lung base extending from the right infrahilar region. Hazy infiltrate or atelectasis in the left mid and lower lung again noted. No significant change from the earlier exam. POS: [facility]
[2020-05-06 08:55] LABS: MDiff Complete? YES
[2020-05-06 08:56] LABS: Band 53 % (5-11); Dohle Bodies SLIGHT; Lymphocytes 12 % (21-51); Metamyelocyte 7 % (0-0); Monocytes 3 % (0-10); Neutrophil 20 % (42-75); Platelet Morphology Comment Appears Decreased; Polychromasia SLIGHT = 2-3 cells (100X) (0-2/hpf); Reactive Lymphocytes 4 % (0-10); Toxic Granulation SLIGHT
[2020-05-06 10:04] LABS: Bacteria/HPF None Seen HPF (None Seen); Bilirubin Negative (Negative); Blood, Urine 2+ (Negative); Clarity Clear (Clear); Glucose, Urine (Dipstick) Normal (Negative); Ketone, Urine Negative (Negative); Leukocyte Negative Leu/uL (Negative); Nitrite Negative (Negative); Protein, Urine (Dipstick) Negative (Neg-Trace); Specific Gravity, Urine 1.003 (1.002-1.036); Squamous Epithelial 0-3 HPF (0-3); Urobilinogen Normal mg/dL (Less than 2); WBC/HPF 0-3 HPF (0-3)
[2020-05-06 10:08] LABS: Sperm/HPF Rare HPF (None Seen)
--- NOTE | 2020-05-06 10:29 | CT ---
CHEST CT WITHOUT CONTRAST ABDOMEN CT WITHOUT CONTRAST PELVIC CT WITHOUT CONTRAST: HISTORY: Please evaluate liver size. Organ donation. FINDINGS: Chest CT: Limited evaluation the mediastinum due to lack of IV contrast. There is extensive pneumomediastinum. Normal heart size. No significant pericardial fluid. Normal caliber aorta Trachea and central bronchi are patent. Scattered alveolar consolidation likely representing aspirati on and/or pneumonia. Greatest degree of consolidation is in the right lower lobe. There are associated air bronchograms. Nonspecific nodules are noted in the left upper lobe. No significant pleural fluid. Questionable trace right-sided pneumothorax (axial image 45). Abdomen CT: Trace amount of perihepatic fluid. Limited evaluation of the solid organs by the lack of IV contrast. Grossly no solid organ abnormality. No mesenteric mass, lymphadenopathy, or free air. Small amount of fluid in both paracolic gutters, ri ght greater than left. No evidence of obstructive uropathy. Punctate 1 mm nonobstructing calculus in the lower pole of the r ight kidney. Vicarious excretion of contrast in the moderately distended gallbladder. Limited evaluation of the alimentary canal by the lack of oral contrast. No evidence of bowel obstruc tion. Nasogastric tube terminates in the stomach. Normal caliber appendix. In the craniocaudal dimension, the right hepatic lobe measures 17.4 cm. In the axial plane, the liver measures 22.7 cm from the right hepatic lobe to the left hepatic lobe. This measurement is made at the level of the main portal vein. Pelvic CT: No mass, lymphadenopathy, free air or free fluid. There is Nelson catheter in the urinary bladder. Pre sacral fat is preserved. There are 2 separate vascular catheters in the right groin that terminate in the right common iliac vein and right external iliac artery. Osseous structures: No lytic or blastic lesions. IMPRESSION: 1. Extensive pneumomediastinum. 2. Questionable small right-sided pneumothorax. 3. Extensive opacification of lung parenchyma which may represent aspiration, atelectasis and/or pneu monia. 4. Punctate nonobstructing calculus in the lower pole of the right kidney. Transcribed Date/Time: 05/06/2020 10:43 AM
[2020-05-06 12:14] LABS: Hemoglobin 11.6 g/dL (14.0-18.0); Mean Corpuscular HGB CONC 31.3 g/dL (32.0-36.0); Mean Corpuscular Hemoglobin 31.4 pg (27.0-31.0); Mean Platelet Volume 7.6 fL (7.4-10.4); Platelet Count 135 thou/uL (130-400); Red Blood Cell (RBC) Count 3.71 mill/uL (4.70-6.10); White Blood Cell (WBC) Count 5.1 thou/uL (4.8-10.8)
--- NOTE | 2020-05-06 12:16 | RAD ---
Chest AP view INDICATION: History of organ donor COMPARISON: Prior exam dated May 06, 2020 FINDINGS: Lungs: There is airspace disease of both lower lobes. This is stable to the prior. Cardiac silhouette: Pneumomediastinum persists. Pulmonary vasculature: Normal Pleural spaces: No pleural effusion or pneumothorax is demonstrated. Upper abdomen: No abnormality seen. Osseous structures: No acute osseous abnormality. Additional findings: Patient remains intubated with gastric catheter placement. The tip of the gastr ic catheter seen within the fundus. IMPRESSION: 1. Persistent bilateral lower lobe airspace disease suspicious for pneumonia or aspiration. 2. Persistent mild pneumomediastinum. 3. Tubes and lines as above. No pneumothorax.
[2020-05-06 12:22] LABS: INR-International Normal Ratio 1.2; PTT 34.2 sec (22.9-36.1); Prothrombin Time 15.1 sec (12.0-14.7)
[2020-05-06 12:36] LABS: ALT (SGPT) 28 U/L (8-55); AST (SGOT) 24 U/L (5-34); Alkaline Phosphatase 38 U/L (40-110); Anion Gap 14 mmol/L (10-20); BUN (Urea Nitrogen) 19 mg/dL (8.9-20.6); Bilirubin, Direct 0.3 mg/dL (0.1-0.3); Bilirubin, Total 0.5 mg/dL (0.2-1.2); CK (CPK) 814 U/L (30-200); CKMB 1.7 ng/mL (0-6.6); Calc. Creatinine Clearance 0 mL/min (70-130); Calcium 8.7 mg/dL (7.8-10.44); Carbon Dioxide 22 mmol/L (22-29); Chloride 119 mmol/L (98-107); Globulin 2.7 g/dL (2.4-3.5); Glucose 180 mg/dL (70-105); Lipase 5 U/L (8-78); Magnesium 2.5 mg/dL (1.6-2.6); Phosphorus 2.9 mg/dL (2.3-4.7); Potassium 3.4 mmol/L (3.5-5.1); Protein, Total 5.7 g/dL (6.0-8.3); Sodium 152 mmol/L (136-145)
[2020-05-06 12:42] LABS: Band 34 % (5-11); Lymphocytes 5 % (21-51); MDiff Complete? YES; Monocytes 5 % (0-10); Neutrophil 54 % (42-75); Nucleated RBC 1 % (0); Platelet Morphology Comment Appears Adequate; Polychromasia SLIGHT = 2-3 cells (100X) (0-2/hpf); Reactive Lymphocytes 2 % (0-10); Toxic Granulation SLIGHT
[2020-05-06] MEDS: Vancomycin HCl 1.25 GM in Sodium Chloride 0.9% 250 ML 250 ML IVPB SCH (14:14)
[2020-05-06 14:24] LABS: Actual Bicarbonate (HCO3a) 25.9 mEq/L (22-28); Base Excess (BEa) 2.5 mEq/L (-2.0 to +3.0); CO2 Tension 35.7 mmHg (35.0-45.0); Calcium, Ionized (arterial) 1.19 mmol/L (1.12-1.30); Carboxyhemoglobin (COHb) 0.3 gm% (0.0-3.0); Hemoglobin (Hb) 12.1 g/dL (14.0-18.0); O2 Tension (PaO2), arterial 417.7 mmHg (80.0-100.0); Potassium - ABG Lab 3.26 mmol/L (3.70-5.30); pH, Arterial 7.48 (7.35-7.45)
[2020-05-06 14:25] LABS: ALV-art Gradient 250.675 mmHg (0-20); Puncture Site Arterial Line
--- NOTE | 2020-05-06 17:13 | CON ---
DATE OF CONSULTATION: REASON FOR CONSULTATION: Cardiac assessment for donation. HISTORY OF PRESENT ILLNESS: Mr. Matute was an unfortunate 39-year-old gentleman who recently . I have been consulted for consideration for heart transplantation. He underwent echo with Doppler yesterday after he . He was found to have a normal LVEF, but the images were limited. He underwent a JANI today, that showed a normal LVEF with no significant valvular dysfunction. He also showed no significant VSD or ASD present. I have now been asked to proceed with coronary angiography for procurement. PAST MEDICAL HISTORY: Alcohol abuse. PAST SURGICAL HISTORY: None. ALLERGIES: NONE. SOCIAL HISTORY: Heavy alcohol use. Positive tobacco use. MEDICATIONS: Unknown. REVIEW OF SYSTEMS: Unobtainable. PHYSICAL EXAMINATION: Deferred. IMPRESSION: Cardiac procurement. RECOMMENDATIONS: I have been asked by the transplant team to proceed with coronary angiography in addition to right and left heart catheterization. We will proceed this afternoon. We will obtain the results and have them available. Job ID: [id number]
[2020-05-06 18:13] LABS: Hemoglobin 11.5 g/dL (14.0-18.0); Mean Corpuscular Hemoglobin 32.9 pg (27.0-31.0); Mean Corpuscular Volume 99.5 fL (78.0-98.0); Mean Platelet Volume 7.5 fL (7.4-10.4); Platelet Count 143 thou/uL (130-400); RBC Distribution Width 11.9 % (11.5-14.5); White Blood Cell (WBC) Count 7.6 thou/uL (4.8-10.8)
[2020-05-06] MEDS: Sodium Chloride 0.45% 1,000 ML IV SCH (18:15)
[2020-05-06 18:19] LABS: INR-International Normal Ratio 1.1; PTT 27.5 sec (22.9-36.1); Prothrombin Time 14.8 sec (12.0-14.7)
[2020-05-06 18:24] LABS: Lactic Acid 1.2 mmol/L (0.5-2.2)
--- NOTE | 2020-05-06 18:26 | RAD ---
CHEST ONE VIEW: 05/06/20 INDICATION: 39-year-old male for organ donation. COMPARISON: Prior study dated 05/06/20. FINDINGS: The perihilar air space opacity predominantly was seen within the bilateral lower lobes is slightly m ore accentuated. The patient remains intubated with gastric catheter placement. No pneumothorax is ev ident. Pneumomediastinum persists. IMPRESSION: 1. Slightly more pronounced infrahilar air space opacities suspicious for worsening bilateral pn eumonia or aspiration. 2. Stable pneumomediastinum. 3. No pneumothorax. POS: [facility]
[2020-05-06 18:35] LABS: Troponin I Less than 0.010 ng/mL (< 0.028)
[2020-05-06 18:53] LABS: ALT (SGPT) 27 U/L (8-55); AST (SGOT) 22 U/L (5-34); Alkaline Phosphatase 40 U/L (40-110); Anion Gap 13 mmol/L (10-20); BUN (Urea Nitrogen) 21 mg/dL (8.9-20.6); Bilirubin, Direct 0.3 mg/dL (0.1-0.3); Bilirubin, Total 0.5 mg/dL (0.2-1.2); CK (CPK) 764 U/L (30-200); Calc. Creatinine Clearance 0 mL/min (70-130); Calcium 9.2 mg/dL (7.8-10.44); Carbon Dioxide 23 mmol/L (22-29); Chloride 127 mmol/L (98-107); Globulin 2.9 g/dL (2.4-3.5); Glucose 180 mg/dL (70-105); Lipase 13 U/L (8-78); Phosphorus 1.4 mg/dL (2.3-4.7); Potassium 3.2 mmol/L (3.5-5.1); Protein, Total 5.9 g/dL (6.0-8.3); Sodium 160 mmol/L (136-145)
[2020-05-06 19:18] LABS: Band 28 % (5-11); Dohle Bodies SLIGHT; Lymphocytes 8 % (21-51); MDiff Complete? YES; Monocytes 5 % (0-10); Neutrophil 59 % (42-75); Platelet Morphology Comment Appears Adequate; Polychromasia SLIGHT = 2-3 cells (100X) (0-2/hpf); Toxic Granulation SLIGHT
[2020-05-06 20:07] VITALS: TEMP 99
[2020-05-06 21:54] LABS: Bilirubin Negative (Negative); Blood, Urine 3+ (Negative); Clarity Turbid (Clear); Glucose, Urine (Dipstick) 50 mg/dL (Negative); Ketone, Urine Negative (Negative); Leukocyte Negative Leu/uL (Negative); Nitrite Negative (Negative); Protein, Urine (Dipstick) 70 mg/dL (Neg-Trace); RBC/HPF Greater than 50 HPF (0-3); Specific Gravity, Urine 1.044 (1.002-1.036); Squamous Epithelial None Seen HPF (0-3); Urobilinogen Normal mg/dL (Less than 2); pH, Urine 5.5 (5.0-9.0)
[2020-05-06 22:12] LABS: Bacteria/HPF Rare-Few HPF (None Seen); Sperm/HPF 4+ HPF (None Seen)
[2020-05-06 22:35] LABS: Base Excess (BEa) -0.8 mEq/L (-2.0 to +3.0); CO2 Tension 35.6 mmHg (35.0-45.0); Calcium, Ionized (arterial) 1.32 mmol/L (1.12-1.30); Carboxyhemoglobin (COHb) 0.2 gm% (0.0-3.0); Hemoglobin (Hb) 13.6 g/dL (14.0-18.0); O2 Tension (PaO2), arterial 431.6 mmHg (80.0-100.0); pH, Arterial 7.43 (7.35-7.45)
[2020-05-06 23:48] LABS: Puncture Site Arterial Line
[2020-05-07 00:20] LABS: INR-International Normal Ratio 1.2; PTT 26.7 sec (22.9-36.1); Prothrombin Time 15.2 sec (12.0-14.7)
[2020-05-07 00:37] LABS: CKMB 0.7 ng/mL (0-6.6); Troponin I 0.011 ng/mL (< 0.028)
[2020-05-07 00:40] LABS: ALT (SGPT) 26 U/L (8-55); AST (SGOT) 21 U/L (5-34); Alkaline Phosphatase 44 U/L (40-110); Anion Gap 11 mmol/L (10-20); BUN (Urea Nitrogen) 23 mg/dL (8.9-20.6); Bilirubin, Direct 0.3 mg/dL (0.1-0.3); Bilirubin, Total 0.6 mg/dL (0.2-1.2); CK (CPK) 757 U/L (30-200); Calc. Creatinine Clearance 0 mL/min (70-130); Calcium 9.2 mg/dL (7.8-10.44); Carbon Dioxide 22 mmol/L (22-29); Chloride 135 mmol/L (98-107); Globulin 2.8 g/dL (2.4-3.5); Glucose 185 mg/dL (70-105); Lipase 25 U/L (8-78); Magnesium 2.5 mg/dL (1.6-2.6); Phosphorus 1.4 mg/dL (2.3-4.7); Potassium 1.6 mmol/L (3.5-5.1); Protein, Total 5.8 g/dL (6.0-8.3); Sodium 166 mmol/L (136-145)
[2020-05-07 00:41] LABS: Band 47 % (5-11); Hemoglobin 11.6 g/dL (14.0-18.0); Hypochromia SLIGHT = 6-15 cells (100X) (0-5/hpf); Lymphocytes 10 % (21-51); MDiff Complete? YES; Mean Corpuscular HGB CONC 32.1 g/dL (32.0-36.0); Mean Corpuscular Hemoglobin 32.6 pg (27.0-31.0); Mean Platelet Volume 7.6 fL (7.4-10.4); Metamyelocyte 2 % (0-0); Monocytes 7 % (0-10); Neutrophil 33 % (42-75); Platelet Count 129 thou/uL (130-400); Platelet Morphology Comment Appears Adequate; RBC Distribution Width 11.9 % (11.5-14.5); Reactive Lymphocytes 1 % (0-10); Red Blood Cell (RBC) Count 3.56 mill/uL (4.70-6.10); White Blood Cell (WBC) Count 7.7 thou/uL (4.8-10.8)
[2020-05-07] MEDS: Hydrocortisone Sod Succ/PF 100 mg/2 ml Vial IVP SCH (01:54)
[2020-05-07] MEDS: Albuterol Sulfate 2.5 mg/3 ml Neb NEB SCH ×2 (02:12→06:25)
[2020-05-07] MEDS: Vancomycin HCl 1.25 GM in Sodium Chloride 0.9% 250 ML 250 ML IVPB SCH (02:25)
[2020-05-07 03:41] LABS: Actual Bicarbonate (HCO3a) 21.5 mEq/L (22-28); Base Excess (BEa) -3.3 mEq/L (-2.0 to +3.0); CO2 Tension 37.4 mmHg (35.0-45.0); Calcium, Ionized (arterial) 1.25 mmol/L (1.12-1.30); Carboxyhemoglobin (COHb) 0.3 gm% (0.0-3.0); Hemoglobin (Hb) 11.4 g/dL (14.0-18.0); O2 Tension (PaO2), arterial 405.7 mmHg (80.0-100.0); Potassium - ABG Lab 1.62 mmol/L (3.70-5.30); pH, Arterial 7.38 (7.35-7.45)
[2020-05-07 03:43] LABS: Puncture Site Arterial Line
[2020-05-07 04:43] LABS: Anion Gap 12 mmol/L (10-20); BUN (Urea Nitrogen) 25 mg/dL (8.9-20.6); Calc. Creatinine Clearance 0 mL/min (70-130); Calcium 8.9 mg/dL (7.8-10.44); Carbon Dioxide 21 mmol/L (22-29); Chloride 130 mmol/L (98-107); Glucose 296 mg/dL (70-105); Potassium 1.6 mmol/L (3.5-5.1); Sodium 161 mmol/L (136-145)
[2020-05-07 04:52] LABS: CKMB 0.7 ng/mL (0-6.6); Troponin I 0.023 ng/mL (< 0.028)
[2020-05-07 06:09] LABS: INR-International Normal Ratio 1.2; Prothrombin Time 15.1 sec (12.0-14.7)
[2020-05-07] MEDS: Piperacillin/Tazobactam 3.375 GM in Sodium Chloride 0.9% 100 ML IVPB SCH (06:14)
[2020-05-07 06:18] LABS: Band 36 % (5-11); Hemoglobin 10.6 g/dL (14.0-18.0); Hypochromia SLIGHT = 6-15 cells (100X) (0-5/hpf); Lymphocytes 6 % (21-51); MDiff Complete? YES; Mean Corpuscular HGB CONC 29.8 g/dL (32.0-36.0); Mean Corpuscular Hemoglobin 29.9 pg (27.0-31.0); Mean Platelet Volume 7.1 fL (7.4-10.4); Monocytes 4 % (0-10); Neutrophil 54 % (42-75); Platelet Count 130 thou/uL (130-400); Platelet Morphology Comment Appears Adequate; RBC Distribution Width 12.1 % (11.5-14.5); Red Blood Cell (RBC) Count 3.55 mill/uL (4.70-6.10)
[2020-05-07 06:29] LABS: Lactic Acid 1.3 mmol/L (0.5-2.2)
[2020-05-07 06:31] VITALS: BP 185/125
[2020-05-07 06:37] LABS: CKMB 0.9 ng/mL (0-6.6); Troponin I 0.026 ng/mL (< 0.028)
[2020-05-07 06:38] LABS: ALT (SGPT) 23 U/L (8-55); AST (SGOT) 18 U/L (5-34); Albumin 3.2 g/dL (3.5-5.0); Alkaline Phosphatase 47 U/L (40-110); Anion Gap 8 mmol/L (10-20); BUN (Urea Nitrogen) 24 mg/dL (8.9-20.6); Bilirubin, Direct 0.3 mg/dL (0.1-0.3); Bilirubin, Total 0.5 mg/dL (0.2-1.2); CK (CPK) 727 U/L (30-200); Calc. Creatinine Clearance 0 mL/min (70-130); Calcium 8.8 mg/dL (7.8-10.44); Carbon Dioxide 26 mmol/L (22-29); Chloride 128 mmol/L (98-107); Globulin 2.7 g/dL (2.4-3.5); Glucose 256 mg/dL (70-105); Lipase 45 U/L (8-78); Magnesium 2.2 mg/dL (1.6-2.6); Potassium 1.8 mmol/L (3.5-5.1); Protein, Total 5.9 g/dL (6.0-8.3); Sodium 160 mmol/L (136-145)
[2020-05-07] MEDS: Sodium Chloride 0.45% 1,000 ML IV SCH (06:39)
[2020-05-07 07:00] LABS: Bilirubin Negative (Negative); Blood, Urine 2+ (Negative); Clarity Clear (Clear); Glucose, Urine (Dipstick) Greater than 1000 mg/dL (Negative); Ketone, Urine Negative (Negative); Leukocyte Negative Leu/uL (Negative); Nitrite Negative (Negative); Protein, Urine (Dipstick) 20 mg/dL (Neg-Trace); RBC/HPF 0-3 HPF (0-3); Specific Gravity, Urine 1.015 (1.002-1.036); Squamous Epithelial None Seen HPF (0-3); Urobilinogen Normal mg/dL (Less than 2); WBC/HPF 0-3 HPF (0-3); pH, Urine 5.5 (5.0-9.0)
[2020-05-07 07:01] LABS: Bacteria/HPF 1+ HPF (None Seen); Sperm/HPF Rare HPF (None Seen)
--- NOTE | 2020-05-07 07:52 | RAD ---
EXAM: CHEST ONE VIEW HISTORY: Organ donor. COMPARISON: 05/06/2020 at 1805 hours. FINDINGS: Endotracheal tube is again noted in place with tip overlying the T2-3 level and just above the level of the thoracic inlet. Nasogastric tube remains unchanged in position. Cardiac silhouette is magnified by projection. Again noted is the parenchymal airspace opacity in the right infrahilar loca tion with patchy parenchymal airspace opacities noted at each lung base and to a lesser extent in the left perihilar location. Pneumomediastinum is again seen. No pneumothorax or obvious pleural effu juan antonio is seen. No other interval change. IMPRESSION: 1. Reticular airspace opacities right infrahilar region right lung base and to a lesser extent in the left perihilar location and left lung base. 2. Stable pneumomediastinum. No pneumothorax is appreciated. 3. Endotracheal tube and nasogastric tubes remain in place. Endotracheal tube overlies the T2-3 level .
--- NOTE | 2020-05-07 08:16 | RAD ---
EXAM: CHEST ONE VIEW HISTORY: Organ donor. COMPARISON: 05/06/2020 FINDINGS: Endotracheal tube and nasogastric tubes remain unchanged in position. Minimal airspace opacity is aga in seen in the right infrahilar region with mild improvement in patchy opacity at the right lung base which may be related to improvement in atelectasis. Minimal patchy opacity persists in left midl cameron zone and to a lesser extent left lung base. Pneumomediastinum is seen but less apparent on current exam. No other interval change. IMPRESSION: 1. Patchy airspace opacities medial right lung base as well as well as to a lesser extent left midlun g zone and left lung base. 2. Endotracheal tube and nasogastric tubes remain in place. 3. Pneumomediastinum is less conspicuous.
[2020-05-07 08:18] LABS: Actual Bicarbonate (HCO3a) 24.4 mEq/L (22-28); Base Excess (BEa) -0.9 mEq/L (-2.0 to +3.0); CO2 Tension 43.3 mmHg (35.0-45.0); Calcium, Ionized (arterial) 1.24 mmol/L (1.12-1.30); Carboxyhemoglobin (COHb) 0.3 gm% (0.0-3.0); O2 Tension (PaO2), arterial 450.8 mmHg (80.0-100.0); Potassium - ABG Lab 1.76 mmol/L (3.70-5.30); pH, Arterial 7.37 (7.35-7.45)
[2020-05-07 08:22] LABS: ALV-art Gradient -219.725 mmHg (0-20); Puncture Site Arterial Line
[2020-05-07 08:28] LABS: Calcium 8.6 mg/dL (7.8-10.44)
[2020-05-07 08:29] LABS: Glucose 193 mg/dL (70-105)
[2020-05-07 08:30] LABS: Anion Gap 9 mmol/L (10-20); Carbon Dioxide 25 mmol/L (22-29)
[2020-05-07 08:32] LABS: Calc. Creatinine Clearance 0 mL/min (70-130)
[2020-05-07 08:33] LABS: BUN (Urea Nitrogen) 25 mg/dL (8.9-20.6); Chloride 130 mmol/L (98-107); Potassium 1.7 mmol/L (3.5-5.1); Sodium 162 mmol/L (136-145)
--- NOTE | 2020-05-07 12:25 | EKG ---
Test Reason : PRONED Blood Pressure : / mmHG Vent. Rate : 106 BPM Atrial Rate : 106 BPM P-R Int : 120 ms QRS Dur : 102 ms QT Int : 338 ms P-R-T Axes : 060 011 134 degrees QTc Int : 448 ms Sinus tachycardia Non-specific intra-ventricular conduction delay Low voltage QRS Septal infarct , age undetermined cannot be excluded Abnormal ECG No previous ECGs available Confirmed by CHAKA SIERRA ([id number]) on 05/07/2020 12:25:15 PM Referred By: Confirmed By:CHAKA SIERRA
[2020-05-18 13:46] LABS: Actual Bicarbonate (HCO3a) 24.1 mEq/L (22-28); Analyzer IN Cardio OR; Base Excess (BEa) -3.9 mEq/L (-2.0 to +3.0); CO2 Tension 57.6 mmHg (35.0-45.0); Calcium, Ionized (arterial) 1.24 mmol/L (1.12-1.30); Carboxyhemoglobin (COHb) 0.3 gm% (0.0-3.0); Hemoglobin (Hb) 11.5 g/dL (14.0-18.0); O2 Tension (PaO2), arterial 103.5 mmHg (80.0-100.0); Potassium - ABG Lab 2.25 mmol/L (3.70-5.30)
[2020-05-18 13:47] LABS: Actual Bicarbonate (HCO3a) 22.7 mEq/L (22-28); Analyzer IN Cardio OR; Base Excess (BEa) -3.5 mEq/L (-2.0 to +3.0); CO2 Tension 45.9 mmHg (35.0-45.0); Calcium, Ionized (arterial) 1.22 mmol/L (1.12-1.30); Carboxyhemoglobin (COHb) 0.3 gm% (0.0-3.0); Hemoglobin (Hb) 11.4 g/dL (14.0-18.0); O2 Tension (PaO2), arterial 475.9 mmHg (80.0-100.0); Potassium - ABG Lab 2.15 mmol/L (3.70-5.30); pH, Arterial 7.31 (7.35-7.45)
[2020-05-18 13:49] LABS: Actual Bicarbonate (HCO3a) 23.4 mEq/L (22-28); Analyzer IN Cardio OR; Base Excess (BEa) -2.7 mEq/L (-2.0 to +3.0); Calcium, Ionized (arterial) 1.24 mmol/L (1.12-1.30); Carboxyhemoglobin (COHb) 0.3 gm% (0.0-3.0); Hemoglobin (Hb) 11.1 g/dL (14.0-18.0); O2 Tension (PaO2), arterial 320.5 mmHg (80.0-100.0); pH, Arterial 7.32 (7.35-7.45)
[2020-05-18 13:49] LABS: Actual Bicarbonate (HCO3a) 24.1 mEq/L (22-28); Analyzer IN Cardio OR; Base Excess (BEa) -2.9 mEq/L (-2.0 to +3.0); CO2 Tension 51.8 mmHg (35.0-45.0); Calcium, Ionized (arterial) 1.23 mmol/L (1.12-1.30); Carboxyhemoglobin (COHb) 0.3 gm% (0.0-3.0); Hemoglobin (Hb) 11.3 g/dL (14.0-18.0); O2 Tension (PaO2), arterial 405.9 mmHg (80.0-100.0); Potassium - ABG Lab 2.12 mmol/L (3.70-5.30); pH, Arterial 7.29 (7.35-7.45)
[2020-05-18 14:12] LABS: Puncture Site Arterial Line; pH, Arterial 7.24 (7.35-7.45)
[2020-05-18 14:12] LABS: Puncture Site Arterial Line
[2020-05-18 14:13] LABS: Puncture Site Arterial Line
[2020-05-18 14:14] LABS: Puncture Site Arterial Line
== END ==
LOC: SDC 16:00 → IMCU/EMU 16:00 → SURG A 05-07 09:03 → IMCU/EMU 05-07 09:03
PROC: B2111ZZ Fluoroscopy of Multiple Coronary Arteries using Low Osmolar Contrast (ICD-10-PCS; principal; 2020-05-05)
PROC: 4A023N7 Measurement of Cardiac Sampling and Pressure, Left Heart, Percutaneous Approach (ICD-10-PCS; principal; 2020-05-05)
DX: Z00.5 Encounter for examination of potential donor of organ and tissue (principal); N20.0 Calculus of kidney
CPT/HCPCS: 36416; 71045; 71250; 74177; 76942; 80053; 81001; 82150; 82248; 82550; 82553; 82805; 82977; 83036; 83605; 83690; 83735; 84100; 84484; 85025; 85384; 85610; 85730; 87205; 93005; 93010; 93312; 93460; 94003; 94668; J1644; J1720; J1815; J1940; J2150; J2248; J2543; J3370; J3430; J3475; J3480; J3490; J7030; J7050; J7070; J7611; P9045; P9047; Q9967